=== PATIENT | female | born 1990 | race Caucasian/White ===

== ENCOUNTER 2025-01-11 11:54 | Outpatient (CLI) | payer OTHER, SELFPAY ==
[2025-01-12 14:45] LABS: HPV Source Cervix
[2025-01-25 09:07] LABS: Pap Test Digital Imaging Done
== END 2025-01-11 11:55 | disposition home or self-care (01) ==
PROVIDERS: Visit Provider Obstetrics & Gynecology
DX: Z12.4 Encounter for screening for malignant neoplasm of cervix (principal); Z11.51 Encounter for screening for human papillomavirus (HPV)
CPT/HCPCS: 87624; 87625; 88141; 88142; 88175

== ENCOUNTER 2025-01-11 14:35 | Outpatient (CLI) | payer OTHER, SELFPAY ==
--- NOTE | 2025-01-11 14:45 | CRLHL7_ITS ---
For Patients: As a result of the Century Cures Act, medical imaging exams and procedure reports are released immediately into your electronic medical record. You may view this report before your referring provider. If you have questions, please contact your health care provider. Indication: Abnormal uterine bleeding. Technique: Ultrasound pelvis transabdominal and transvaginal for better assessment of the endometrium. Real-time sonographic images with spectral and color Doppler imaging of the ovaries were obtained. Comparison: None. Findings: Uterus: Size: 9 x 6 x 5 cm. Mass: No. Endometrium: Transvaginal imaging was performed to better evaluate the endometrium. No mass or fluid collection. IUD appears in proper position. Borders are obscured by the IUD. Right ovary: Size: 4 x 4 x 3 cm. Mass: 2.8 cm dominant follicle or small simple cyst. This is almost certainly benign and does not require further evaluation. Blood flow: Normal arterial and venous blood flow. Left ovary: Size: 3 x 2 x 2 cm. Mass: No. Blood flow: Normal arterial and venous blood flow. Cul-de-sac and adnexa: Significant free Fluid: No. Mass: No. Impression: Unremarkable pelvic ultrasound. IUD is in satisfactory position. No specific finding to explain uterine bleeding. Dictated by Jesus Cooper MD @ 01/16/2025 7:36:15 AM (Electronically Signed)
== END 2025-01-11 14:36 | disposition home or self-care (01) ==
LOC: US 14:35
PROVIDERS: Visit Provider Obstetrics & Gynecology
DX: N93.9 Abnormal uterine and vaginal bleeding, unspecified (principal)
CPT/HCPCS: 76830; 76856